=== PATIENT | male | born 1945 | race Caucasian/White ===

== ENCOUNTER 2017-07-14 09:12 | Emergency (ER) | payer MEDICARE ==
[2017-07-14] MEDS ORDERED: predniSONE 20 MG TAB ONE (09:37)
== END 2017-07-14 09:39 | disposition home or self-care (01) ==
LOC: BURERS 09:12
DX: J20.9 Acute bronchitis, unspecified (principal); F17.210 Nicotine dependence, cigarettes, uncomplicated; Z79.82 Long term (current) use of aspirin; Z79.899 Other long term (current) drug therapy
CPT/HCPCS: 99283; J7506

== ENCOUNTER 2022-08-10 09:57 | Outpatient (CLI) | payer MEDICARE | END 2022-08-10 09:58 | disposition home or self-care (01) | LOC: BURRAD 09:57 | PROVIDERS: ATTEND Family Medicine | DX: M79.602 Pain in left arm (principal) ==

== ENCOUNTER 2023-11-29 13:42 | Outpatient (CLI) | payer MEDICARE | END 2023-11-29 13:43 | disposition home or self-care (01) | LOC: BURRAD 13:42 | PROVIDERS: ATTEND Family Medicine | DX: M54.50 Low back pain, unspecified (principal); M47.816 Spondylosis without myelopathy or radiculopathy, lumbar region | CPT/HCPCS: 72110 ==